=== PATIENT | male | born 1965 | race Caucasian/White ===

== ENCOUNTER 2016-05-05 13:11 | Emergency (ER) | payer OTHER ==
[~2016-05-05] VITALS: Ht 177.8 cm; Wt 120.5 kg
[~2016-05-05 13:11] MED LIST: ATRV10T PO; CEPH-512 PO; LOSA50TA37 PO
[2016-05-05 13:12] VITALS: BP 154/79; PULSE 81; RESP 24; O2SAT 97
[2016-05-05] MEDS ORDERED: NEBI10TA2 PO (13:18)
--- NOTE | 2016-05-05 13:52 | DRSVH ---
PROCEDURE: X-RAY CHEST ONE VIEW, PORTABLE ([id number]) INDICATIONS: palpitations TECHNIQUE: One view of the chest was acquired. COMPARISON: [facility], CT, CHEST W/O CONTRAST, 07/02/2014, 13:22. [facility] l, CR, CHEST 2VW, 05/14/2014, 8:08. [facility], CR, CHEST 1VW (PORTABLE), 05/13/2014, 16:4 8. FINDINGS: Surgical changes and devices: PICC line from right sided approach has an unknown expected configurati on with its tip extending to superimpose on the proximal left mainstem bronchus. This may not repres ent a normal venous anatomy for the patient given that leftward position. Dual-chamber cardiac pacem lennox device and leads appear normal.. Lungs and pleura: No pleural effusions or pneumothorax. Lungs are clear. Mediastinum: Mediastinal contours appear normal. Heart size is normal. Bones and chest wall: No suspicious bony lesions. Overlying soft tissues appear unremarkable. IMPRESSION: Presumed abnormal positioning of the PICC line which extends across the midline to the le ft mediastinum whereas the cardiac pacemaking device leads has a normal pathway in the expected posit ion of the superior vena cava. Ectopic positioning is presumed, venous anatomy anomaly may be presen t. CT scanning could most accurately assess the exact positioning of the PICC line from right sided approach. Dictated by: Chance Baez M.D. on 05/05/2016 at 13:49 Approved by: Chance Baez M.D. on 05/05/2016 at 13:51
[2016-05-05 14:06] LABS: BASOPHILS % (AUTO) 0.6 % (0-3); EOSINOPHILS % (AUTO) 1.3 % (0-5); MONOCYTES % (AUTO) 13.4 % (4-12); Mean Corpuscular Hemoglobin 31.8 pg (27.0-35.0); Mean Corpuscular Volume 89.4 fL (81-100); NEUTROPHILS % (AUTO) 67.8 % (40-74); Platelet Count 200 bil/L (150-400)
[2016-05-05 14:22] LABS: Magnesium 1.9 mg/dL (1.6-2.6)
[2016-05-05 14:25] LABS: TROPONIN T < 0.010 ug/L (0.0-0.011)
--- NOTE | 2016-05-05 14:31 | ED.REPORT ---
HPI-General Illness Date of Service May 05, 2016 ED Provider: Yves Rosario MD A 50 year old male with history of pacemaker, cardiac sarcoidosis, and cardiomyopathy is brought to the ED via EMS due to heart palpitations. The pt's pacemaker was turned off at one point and the patient experienced "flutters." He states that he is experiencing those same "flutters" now. This is accompanied by lethargy, dizziness, and difficulty swallowing. Per EMS, bp was 130/90 and HR was 180. His needle valve operator showed occasional PACs and PVCs. The pt saw his doctor for a check up one week ago at which point he was feeling well. Nursing Notes Stated Complaint: IRREGULAR HEART RATE Chief Complaint: Dysrhythmia/Cardiac Nursing Notes Reviewed: Yes Allergies: Coded Allergies: No Known Allergies (Verified Allergy, Unknown, 05/05/16) Scheduled Atorvastatin (Lipitor) 10 Mg Tab 10 MG PO HS Losartan Potassium (Losartan Potassium) 50 Mg Tablet 50 MG PO DAILY Nebivolol (Bystolic) 10 Mg Tablet 10 MG PO BID General Time Seen by MD: 13:12 Chief Complaint Other (Palpitations) Hx Obtained From: Patient, EMS Arrived By: Ambulance Sudden in Onset?: Yes Onset Occurred: 1 - 4 hours ago Symptom Duration: Since onset Recent Healthcare: Recent doctor visit (visited PCP for doctor 1 week ago.) Similar Sx Previous: Yes Past Medical History Past Medical History cardiac sarcoidosis cardiomegaly hiatal hernia kidney stones hemodialysis 1987 vertebral disc injury Reports: Hyperlipidemia, Hypertension Past Surgical History back surgery pacemaker 2014 Smoking History Former Smoker (quit 1999) Social History Other Social History: Ambulatory Status Independent Review of Systems difficulty swallowing Full Review of Systems Constitutional: Reports: Lethargy, Denies: Chills, Fever Respiratory: Denies: Non-productive cough Cardiovascular: Reports: Palpitations Neurologic: Reports: Dizziness Complete sys rev & neg: except as marked. Physical Exam Vital Signs Vital Signs Date Time Temp Pulse Resp B/P Pulse Ox O2 Delivery O2 Flow Rate FiO2 05/05/16 17:16 70 17 119/69 95 Room Air 05/05/16 13:12 37.0 81 24 154/79 97 Room Air Initial VS: Reviewed General/Constitutional: Well-developed, Well-nourished Head / Eyes: Atraumatic, Normocephalic, PERRL ENT: Mucous membranes moist, Conjunctiva normal, No scleral icterus Neck: Supple, Non-tender, Full range of motion Respiratory: Breath sounds normal, Clear to auscultation, No respiratory distress Cardiovascular: Regular rate & rhythm, Heart sounds normal, Intact distal pulses Abdomen / GI: Soft, Non-tender, No guarding, No rebound, No distention Back: No CVA tenderness Lymphatic: No lymphadenopathy Skin: Warm, Dry, No cyanosis Neurologic: Alert, Oriented, Nonfocal Psychiatric: Mood/affect normal, Behavior normal, Normal thought content Interpretation & Diagnostics Lab Results Interpretation Result Diagram: 05/05/16 1353 05/05/16 1353 Test 05/05/16 13:25 05/05/16 13:53 05/05/16 15:40 Urine Color Yellow (YELLOW) Urine Appearance Clear (CLEAR,HAZY) Urine pH 5.5 (5.0-8.0) Urine Specific [place] 1.025 (1.003-1.035) Urine Protein Negativemg/dL (NEG,TRACE) Urine Glucose (UA) Negativemg/dL (NEGATIVE) Urine Ketones Negativemg/dL (NEGATIVE) Urine Occult Blood Negative (NEGATIVE) Urine Nitrite Negative (NEGATIVE) Urine Bilirubin Negative (NEGATIVE) Urine Urobilinogen Normalmg/dL (NORMAL) Urine Leukocyte Esterase Negative (NEGATIVE) Urine RBC 0-2/hpf (0-2) Urine WBC 0-5/hpf (0-5) Urine Epithelial Cells Few/hpf (NONE-MOD) Urine Crystals None seen (NONE SEEN) Urine Bacteria Few/hpf (NONE-FEW) Urine Hyaline Casts None/lpf (NONE) Urine Granular Casts None seen (NONE SEEN) Urine Waxy Casts None seen (NONE SEEN) Urine Red Blood Cell Casts None seen (NONE SEEN) Urine White Blood Cell Casts None seen (NONE SEEN) Urine Mucus None seen (None Seen) Urine Trichomonas None seen (NONE SEEN) Urine Yeast None (NONE SEEN) Urinalysis Comment None Urine Culture Reflexed Not indicated Hold Urine Received (Received) White Blood Count 6.8th/mm3 (3.8-10.1) Red Blood Count 5.10mil/mm3 (4.40-5.80) Hemoglobin 16.2g/dL (13.8-17.2) Hematocrit 45.6% (41.0-50.0) Mean Corpuscular Volume 89.4fL (81-100) Mean Corpuscular Hemoglobin 31.8pg (27.0-35.0) Mean Corpuscular Hemoglobin Concent 35.5% (32.0-37.0) Red Cell Distribution Width 13.3% (12.3-15.4) Platelet Count 200bil/L (150-400) Neutrophils (%) (Auto) 67.8% (40-74) Lymphocytes (%) (Auto) 16.6% (14-46) Monocytes (%) (Auto) 13.4% (4-12) Eosinophils (%) (Auto) 1.3% (0-5) Basophils (%) (Auto) 0.6% (0-3) Sodium Level 136mEq/L (134-144) Potassium Level 4.4mEq/L (3.5-5.2) Chloride Level 99mEq/L (97-108) Carbon Dioxide Level 25mmol/L (18-29) Blood Urea Nitrogen 12mg/dL (6-24) Creatinine 0.97mg/dL (0.76-1.27) Estimat Glomerular Filtration Rate 86mL/min (>59) Glucose Level 115mg/dL (60-99) Calcium Level 8.9mg/dL (8.5-10.1) Magnesium Level 1.9mg/dL (1.6-2.6) Total Bilirubin 0.8mg/dL (0.0-1.2) Aspartate Amino Transf (AST/SGOT) 28U/L (0-50) Alanine Aminotransferase (ALT/SGPT) 39U/L (0-44) Alkaline Phosphatase 54U/L (25-150) Total Protein 7.1g/dL (6.4-8.4) Albumin 4.3g/dL (3.4-5.0) Hold Manriquez Top Tube Received (Received) Troponin T < 0.010ug/L (0.0-0.011) ECG Interpretation ECG Interpretation: Sinus rhythm. Rate is 75. Ventricular premature complex. Nonspecific IVCD with LAD. Anterolateral infarct, recent. Time: 13:31 Interpreted by: ED physician X-Ray Chest Interpretation Chest Xray Interpretation: IMPRESSION: Presumed abnormal positioning of the PICC line which extends across the midline to the left mediastinum whereas the cardiac pacemaking device leads has a normal pathway in the expected position of the superior vena cava. Ectopic positioning is presumed, venous anatomy anomaly may be present. CT scanning could most accurately assess the exact positioning of the PICC line from right sided approach. Dictated by: Chance Baez M.D. on 05/05/2016 at 13:49 Approved by: Chance Baez M.D. on 05/05/2016 at 13:51 1630: Addendum: Consult with radiology, Dr. Chance Baez on chest x-ray. Upon reexamination of x-ray, Dr. Baez confirms there is no PICC line. View: Portable, 1 view Interpretation / Wet Read by: Interpret - Radiologist Re-Eval/Medical Decision Med Decision/Clinical Course Patient initially evaluated by Dr. Rosario and turned over to Dr. Stout at change of shift. 50-year-old male with a history of pulmonary and cardiac sarcoidosis, complete heart block, cardiomyopathy with a recent echo in January 2016 being essentially normal (EF of 60%), and a biventricular pacemaker defibrillator presents with 15 minutes of chest heaviness in the mid upper chest as well as lightheadedness, feeling is he might pass out. He states it feels similar to when his pacemaker is shut off for a brief period of time. On arrival his EKG was unrevealing for a cause of the chest heaviness and lightheadedness. He did have several episodes of PVCs that were noted on assistant therapy aide during his 3 hour stay here. He notified us of symptoms during one of the runs of PVCs. 2 hour troponin returned negative. Chest x-ray was unrevealing. Patient is reassured that his heart is looking good. He plans to follow up with cardiology and have the pacemaker interrogated in the next week. I have also advised him to follow-up with his PCP Source of Hx: Old records Time of Eval: 15:16 Patient Status: Condition unchanged Re-Evaluation/Progress Note: Dr. Stout is taking over for Dr. Rosario. EKG looks completely normal. Plan to cnosult with radiology regarding chest x-ray. UA ordered. Time of Eval: 16:43 Patient Status: Condition resolved Re-Evaluation/Progress Note: Imaging and blood work looks completely normal. There are no dangerous rhythms and nothing concerning. Informed pt of results. F/U and RTER warnings given. All questions addressed. Consultation : Call Returned at: 16:30 Note: Consult with radiology, Dr. Chance Baez on chest x-ray. Upon reexamination of x-ray, Dr. Baez confirms there is no PICC line. Counseled Regarding: Diagnosis, Lab results Discharge & Departure Shift Change Sign-Out Patient Care Transferred: Yes Discussed Complaint(s): Yes Laboratory Evaluation: Lab evaluation discussed Imaging Studies: Imaging discussed Primary Impression: Lightheadedness Additional Impressions: Palpitations PVC's (premature ventricular contractions) Ruled Out: Acute coronary syndrome Disposition: Home Discharge Condition All VS Reviewed: Yes Condition: Stable Patient Instructions: Palpitations (ED) Additional Instructions: Thank you for an trusting us with your care today. Your emergency room evaluation included an interview, physical exam, laboratory studies, EKG, and chest x-ray. All of these studies returned normal. Your cardiac workup today is very reassuring. I would recommend that you follow up with your senior java programmer analyst and with your primary care in the next week or two. Please return to the ER if you develop new or worsening symptoms. Referrals: NOPCP (PCP) Care Transferred to: Dr. Stout Care Transferred at: 15:00 Aleisha Attestation Portions of this note were transcribed by Luis Marks and Min Maki. I, Dr. Rosario personally performed the history, physical exam and medical decision- making; I reviewed and confirmed the accuracy of the information in the transcribed note. Signed by: Aleisha Villeda, 2016 and 1533. Yves Rosario MD May 05, 2016 14:31 Luis Marks May 05, 2016 14:45 MIN MAKI May 05, 2016 15:34 Hilton Stout DO May 05, 2016 17:01 DENEEN ALVAREZ May 05, 2016 17:09
[2016-05-05 16:49] LABS: APPEARANCE,URINE CLEAR (CLEAR,HAZY); COLOR,URINE YELLOW (YELLOW); OCCULT BLOOD,URINE NEGATIVE (NEGATIVE); PH,URINE 5.5 (5.0-8.0); UROBILINOGEN,URINE NORMAL (NORMAL)
[2016-05-05 17:16] VITALS: BP 119/69; PULSE 70; RESP 17; O2SAT 95
== END 2016-05-05 17:17 | disposition home or self-care (01) ==
LOC: EDBD 13:11 → EDUNIT# 13:11 → SED 13:11
DX: R42 Dizziness and giddiness (principal); R00.2 Palpitations; I49.3 Ventricular premature depolarization; R53.83 Other fatigue; R13.10 Dysphagia, unspecified; E78.5 Hyperlipidemia, unspecified; I10 Essential (primary) hypertension; I42.9 Cardiomyopathy, unspecified; I44.2 Atrioventricular block, complete; Z95.0 Presence of cardiac pacemaker; Z87.442 Personal history of urinary calculi; Z87.891 Personal history of nicotine dependence; Z87.09 Personal history of other diseases of the respiratory system